=== PATIENT | female | born 1980 | race Caucasian/White ===

== ENCOUNTER 2019-11-17 11:22 | Emergency (ER) | payer OTHER, SELFPAY ==
[2019-11-17 11:47] VITALS: BP 157/97; PULSE 87; RESP 16; TEMP 36.6; O2SAT 97; BMI 23.5
--- NOTE | 2019-11-17 12:26 | DI.CT.S_ITS ---
PROCEDURE: CT HEAD/BRAIN WO CON INDICATIONS: headache, hx of seizure, flashing lights in eyes TECHNIQUE: Noncontrast 4.5 mm thick angled axial sections acquired from the foramen magnum to the vertex, with coronal and sagittal reformats. For radiation dose reduction, the following was used: automated exposure control, adjustment of mA and/or kV according to patient size. COMPARISON: None. FINDINGS: Image quality: Excellent. CSF spaces: Basal cisterns are patent. No extra-axial fluid collections. Asymmetries seen of the lateral ventricles, which is considered to be within physiologic/developmental limits. Brain: No midline shift. No intracranial masses or hemorrhage. North-white matter interface is normal. Skull and face: Calvarium and visualized facial bones are intact, without suspicious lesions. Sinuses: Visualized sinuses and mastoids are clear. IMPRESSION: No acute intracranial process is seen to explain the patient's presenting symptoms. If it would be helpful for clinical management decision making, please consider a dedicated seizure protocol brain MRI (without and with contrast) for further evaluation (assuming that there is no contraindication). Dictated by: Iam Ordonez M.D. on 11/17/2019 at 11:48 Approved by: Iam Ordonez M.D. on 11/17/2019 at 11:49
[2019-11-17 12:52] LABS: Add Manual Diff / Slide Review NO; Basophils Absolute Auto 0 /uL (0-100); Basophils Percent Auto 0.8 % (0-2); Eosinophils Absolute Auto 0 /uL (0-450); Eosinophils Percent Auto 0.8 % (2-4); Hematocrit 41.7 % (36-46); Hemoglobin 14.2 g/dL (12.0-16.0); Lymphocytes Absolute Auto 1300 /uL (1100-4500); Lymphocytes Percent Auto 24.4 % (25-40); Mean Corpuscular Hemoglobin 32.5 PG (26-34); Mean Corpuscular Volume 95.8 fL (80-100); Monocytes Absolute Auto 400 /uL (0-900); Monocytes Percent Auto 7.5 % (3-14); Neutrophils Absolute Auto 3500 /uL (1500-7000); Neutrophils Percent Auto 66.5 % (50-75); Platelet Count 206 X10^3/uL (150-400); Red Blood Cell Count 4.35 X10^6/uL (4.0-5.2); Red Cell Distribution Width 12.3 % (11.6-14.8); White Blood Cell Count 5.3 X10^3/uL (4.5-11.0)
[2019-11-17 12:54] LABS: Prothrombin Time 10.9 SECONDS (10.1-12.7)
[2019-11-17 12:57] LABS: PTT Partial Thromboplastin Tim 31 SECONDS (26.4-36.2)
[2019-11-17 12:58] LABS: Alanine Aminotransferase 33 IU/L (<35); Albumin 4.1 g/dL (3.5-5.0); Albumin Globulin Ratio 1.4 (1.0-2.8); Alkaline Phosphatase 63 U/L (38-126); Aspartate Aminotransferase 52 IU/L (14-36); BUN Creatinine Ratio 14.7 (6-22); Bilirubin Total 0.3 mg/dL (0.2-1.3); Blood Urea Nitrogen 10 mg/dL (7-17); Calcium 9.5 mg/dL (8.4-10.2); Carbon Dioxide 28 mmol/L (22-32); Chloride 105 mmol/L (98-107); Estimated Glomerular Filt Rate > 60.0 mL/min (>60); Globulin 2.9 g/dL (1.7-4.1); Glucose 127 mg/dL (70-100); HEMOLYSIS < 15 (0-50); Sodium 138 mmol/L (137-145)
[2019-11-17 13:01] LABS: C-Reactive Protein Quant 0.9 mg/dL (<1.0)
[2019-11-17 13:13] LABS: Erythrocyte Sedimentation Rate 2 MM/HR (0-20)
[2019-11-17 13:15] LABS: Prolactin 6.6 ng/mL (3.0-18.6)
[2019-11-17] MEDS: KETOROLAC 60 MG/2 ML VIAL 15 MG IV (13:34)
[2019-11-17] MEDS: ACETAMINOPHEN 325 MG TABLET 650 MG PO (13:34)
[2019-11-17] MEDS: SODIUM CHLORIDE 0.9% 1,000 ML 150 ML IV (13:34)
[2019-11-17 14:42] VITALS: BP 166/78; PULSE 78; RESP 20; O2SAT 99
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
== END 2019-11-17 14:42 | disposition home or self-care (01) ==
PROVIDERS: Emergency Provider Nurse Practitioner Family; PCP Nurse Practitioner Gerontology
DX: R56.9 Unspecified convulsions (principal); R51 Headache; M25.512 Pain in left shoulder
CPT/HCPCS: 36415; 70450; 80053; 84146; 85025; 85610; 85651; 85730; 86140; 93005; 96361; 96374; 99284; J1885